=== PATIENT | male | born 1955 | race Caucasian/White ===

== ENCOUNTER → 2016-07-07 | Outpatient (CLI) | payer OTHER ==
[~2016-07-07] MED LIST: ALLO300T PO; ASCO100072 PO; ASPI-515 PO; CIPR500T87 PO; LISI5TAB7 PO; LYSI1000 PO; ONDA4TAB10 PO; OXYC-302 PO; SITA1TAB5 PO; TAMS-11 PO; UBID400C6 PO; ZINC50CA PO
== END | disposition home or self-care (01) ==
LOC: RAD 15:24
PROVIDERS: ATTEND Family Medicine
DX: N20.0 Calculus of kidney (principal)
CPT/HCPCS: 74000

== ENCOUNTER 2017-05-26 11:57 | Emergency (ER) | payer OTHER ==
[~2017-05-26] VITALS: Ht 175.3 cm; Wt 86.6 kg
[~2017-05-26 11:57] MED LIST changes: -LYSI1000 PO; +LYSI100010 PO
[2017-05-26] MEDS ORDERED: SODIUM CHLORIDE 0.9% 1,000ML IVBOLUS ONE (13:00)
[2017-05-26 13:17] LABS: BASOPHILS # (AUTO) 0.02 x10^3/uL (0-0.1); BASOPHILS % (AUTO) 0 % (0-1); EOSINOPHILS # (AUTO) 0.21 x10^3/uL (0-0.4); EOSINOPHILS % (AUTO) 3 % (1-7); LYMPHOCYTES # (AUTO) 1.84 x10^3/uL (1-3.4); LYMPHOCYTES % (AUTO) 25 % (22-44); MD NO; MEAN CORPUSCULAR HEMOGLOBIN 31.6 pg (27.5-34.5); MEAN CORPUSCULAR HGB CONC 34.3 g/dL (33.2-36.2); MEAN CORPUSCULAR VOLUME 92.1 fL (81-97); MEAN PLATELET VOLUME 9.1 fL (7.4-10.4); MONOCYTES # (AUTO) 0.65 x10^3/uL (0.2-0.8); MONOCYTES % (AUTO) 9 % (2-9); NEUTROPHILS # (AUTO) 4.56 x10^3/uL (1.8-6.8); NEUTROPHILS % (AUTO) 63 % (42-75); PLATELET COUNT 167 x10^3/uL (130-400); RED BLOOD COUNT 5.39 x10^6/uL (4.38-5.82); RED CELL DISTRIBUTION WIDTH 13.6 % (9.4-14.8)
[2017-05-26 13:27] LABS: ALBUMIN 4.1 g/dL (3.4-5.0); ANION GAP 9 mmol/L (5-15); CALCIUM 9.4 mg/dL (8.5-10.1); CHLORIDE 105 mmol/L (98-107)
[2017-05-26 13:30] LABS: ALANINE AMINOTRANSFERASE 45 U/L (12-78); ALKALINE PHOSPHATASE 73 U/L (45-117); BILIRUBIN,TOTAL 0.7 mg/dL (0.2-1.0); CREATININE 1.29 mg/dL (0.7-1.3); TOTAL PROTEIN 7.8 g/dL (6.4-8.2)
[2017-05-26] MEDS ORDERED: PRAV20TA2 PO (15:49)
[2017-05-26] MEDS ORDERED: LOSA25TA5 PO (15:49)
[2017-05-26] MEDS ORDERED: EMPA25TA PO (15:49)
[2017-05-26] MEDS ORDERED: POTA15TA9 PO (15:49)
[2017-05-26] MEDS ORDERED: SAXA1TBM2 PO (15:49)
[2017-05-26 16:47] LABS: TROPONIN I < 0.015 ng/mL (0.000-0.045)
[2017-05-26 17:22] LABS: MICROSCOPIC NOT IND
[2017-05-26 17:26] LABS: CULTURE INDICATED? NO
[2017-05-26] MEDS ORDERED: OMNIPAQUE 350 MG/ML, 100ML BOTTLE ONE (18:02)
[2017-05-26 19:30] VITALS: BP 126/75
== END 2017-05-26 19:33 | disposition home or self-care (01) ==
LOC: ED 16:46
DX: R55 Syncope and collapse (principal); I10 Essential (primary) hypertension; E11.9 Type 2 diabetes mellitus without complications; E78.5 Hyperlipidemia, unspecified; Z88.0 Allergy status to penicillin; Z79.82 Long term (current) use of aspirin; Z79.84 Long term (current) use of oral hypoglycemic drugs; Z88.2 Allergy status to sulfonamides
CPT/HCPCS: 36415; 70450; 71275; 74175; 76770; 80053; 81003; 84484; 85025; 93005; 99285; Q9967